=== PATIENT | female | born 2000 | race Caucasian/White ===

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

== ENCOUNTER 2018-01-11 21:37 | Outpatient (CLI) | payer SELFPAY, OTHER | END 2018-01-12 00:32 | disposition home or self-care (01) | LOC: OBT 21:37 → L-D 21:38 | DX: O62.9 Abnormality of forces of labor, unspecified (principal); Z3A.39 39 weeks gestation of pregnancy | CPT/HCPCS: G0463 ==

== ENCOUNTER 2018-01-18 16:10 | Inpatient (IN) | payer OTHER ==
[2018-01-18] MEDS ORDERED: METHYLERGONOVINE 0.2 MG INJ IM ×2 (17:00→21:30)
[2018-01-18] MEDS ORDERED: CARBOPROST 250 MCG INJ IM ×2 (17:00→21:30)
[2018-01-18] MEDS ORDERED: LIDOCAINE 1% (MPF) 30 ML INJ INJ (17:00)
[2018-01-18] MEDS ORDERED: BUTORPHANOL 2 MG INJ IV (17:00)
[2018-01-18] MEDS ORDERED: IBUPROFEN 600 MG TAB PO (17:00)
[2018-01-18] MEDS ORDERED: OXYTOCIN 30 UNITS/LR 500 ML IV ×2 (17:00→21:30)
[2018-01-18] MEDS ORDERED: MISOPROSTOL 200 MCG TAB PR ×2 (17:00→21:30)
[2018-01-18] MEDS ORDERED: HYDROCODONE/APAP (5/325) TAB PO (17:00)
[2018-01-18] MEDS: LACTATED RINGER'S 1,000 ML IV (17:08)
[2018-01-18] MEDS: AMPICILLIN 2 GM/NS (PMX) 100 ML IV (17:09)
[2018-01-18 17:23] LABS: ADD MAN DIFF? NO
[2018-01-18 17:32] LABS: BASOPHILS % 0.4 % (0.0-2.0); EOSINOPHILS # 0.2 10^3/ul (0.0-0.5); EOSINOPHILS % 1.7 % (0.0-7.0); HEMATOCRIT 38.6 % (37.0-47.0); HEMOGLOBIN 12.6 g/dl (12.0-16.0); LYMPHOCYTES # 2.1 10^3/ul (0.8-2.9); LYMPHOCYTES % 21.8 % (18.0-55.0); MEAN CORPUSCULAR HEMOGLOBIN 28.5 pg (29.0-33.0); MEAN CORPUSCULAR HGB CONC 32.6 g/dl (32.0-37.0); MEAN CORPUSCULAR VOLUME 87.3 fl (72.0-104.0); MEAN PLATELET VOLUME 10.7 fl (7.4-10.4); MONOCYTE # 0.7 10^3/ul (0.3-0.9); MONOCYTES % 7.8 % (0.0-13.0); NEUTROPHIL # 6.5 10^3/ul (1.6-7.5); NEUTROPHILS % 67.8 % (30.0-74.0); PLATELET COUNT 216 10^3/UL (140-415); RED BLOOD COUNT 4.42 10^6/ul (4.20-5.40)
[2018-01-18 17:32] LABS: WHITE BLOOD COUNT 9.5 10^3/ul (4.8-10.8)
[2018-01-18] MEDS: OXYTOCIN 30 UNITS/LR 500 ML IV ×3 (17:44→21:15)
[2018-01-18 17:47] LABS: INR 0.86; PROTIME 11.8 Sec (11.9-14.9); PT RATIO 0.9
[2018-01-18 17:48] LABS: PARTIAL THROMBOPLASTIN TIME 26.6 Sec (25.0-35.0)
[2018-01-18 18:16] LABS: HEPATITIS B SURFACE ANTIGEN NEGATIVE (NEGATIVE)
[2018-01-18] MEDS ORDERED: AMPICILLIN 1 GM/NS (PMX) 50 ML IV (21:00)
[2018-01-18] MEDS ORDERED: LACTATED RINGER'S 1,000 ML IV* (21:15)
[2018-01-18 21:29] LABS: RAPID PLASMA REAGIN NONREACTIVE (NR)
[2018-01-18] MEDS ORDERED: OXYCODONE/ASPIRIN (4.88/325) TAB PO (21:30)
[2018-01-18] MEDS: WITCH HAZEL/GLYCERIN PAD PR (23:28)
[2018-01-18] MEDS: BENZOCAINE 20% 56 ML SPRAY TOP (23:28)
[2018-01-18] MEDS: LANOLIN 7 GM TUBE TOP (23:29)
[2018-01-19] MEDS: IBUPROFEN 600 MG TAB PO ×5 (00:16→23:44)
[2018-01-19 08:59] LABS: ADD MAN DIFF? NO
[2018-01-19 09:06] LABS: WHITE BLOOD COUNT 7.8 10^3/ul (4.8-10.8)
[2018-01-19 09:06] LABS: BASOPHILS % 0.4 % (0.0-2.0); EOSINOPHILS # 0.2 10^3/ul (0.0-0.5); EOSINOPHILS % 2.7 % (0.0-7.0); HEMATOCRIT 34.9 % (37.0-47.0); HEMOGLOBIN 11.3 g/dl (12.0-16.0); LYMPHOCYTES # 2.6 10^3/ul (0.8-2.9); LYMPHOCYTES % 32.8 % (18.0-55.0); MEAN CORPUSCULAR HEMOGLOBIN 28.5 pg (29.0-33.0); MEAN CORPUSCULAR HGB CONC 32.4 g/dl (32.0-37.0); MEAN CORPUSCULAR VOLUME 87.9 fl (72.0-104.0); MONOCYTE # 0.7 10^3/ul (0.3-0.9); MONOCYTES % 8.7 % (0.0-13.0); NEUTROPHIL # 4.3 10^3/ul (1.6-7.5); NEUTROPHILS % 54.9 % (30.0-74.0); PLATELET COUNT 219 10^3/UL (140-415); RED BLOOD COUNT 3.97 10^6/ul (4.20-5.40); RED CELL DISTRIBUTION WIDTH 14.1 % (11.5-14.5)
[2018-01-19] MEDS: INFLUENZA VIRUS VACCINE 0.5 ML (DISPENSING) IM* (11:39)
[2018-01-20] MEDS: IBUPROFEN 600 MG TAB PO ×3 (05:28→17:52)
[2018-01-20] MEDS: DIPHTH/TET/ACEL PERTUSS (ADULT) 0.5 ML VIAL IM* (12:07)
[2018-01-21] MEDS ORDERED: INFLUENZA VIRUS VACCINE 0.5 ML (DISPENSING) IM* (09:00)
== END 2018-01-20 17:35 | disposition home or self-care (01) | DRG 775 ==
LOC: OBT 16:10 → L-D 16:11 → OBT 16:41 → L-D 16:41 → PP1 20:06
PROVIDERS: Obstetrics & Gynecology
PROC: 10E0XZZ Delivery of Products of Conception, External Approach (ICD-10-PCS; principal; 2018-01-18)
PROC: 4A1HXCZ Monitoring of Products of Conception, Cardiac Rate, External Approach (ICD-10-PCS; 2018-01-18)
PROC: 3E0234Z Introduction of Serum, Toxoid and Vaccine into Muscle, Percutaneous Approach (ICD-10-PCS; 2018-01-20)
DX: O48.0 Post-term pregnancy (principal); Z37.0 Single live birth; Z3A.40 40 weeks gestation of pregnancy; Z23 Encounter for immunization
CPT/HCPCS: 85025; 85610; 85730; 86592; 86900; 86901; 87340; 90686; 90715

== ENCOUNTER 2018-05-25 19:15 | Emergency (ER) | payer OTHER ==
[2018-05-25] MEDS: ONDANSETRON (ODT) 4 MG TAB ODT (20:09)
[2018-05-25] MEDS: HYDROCODONE/APAP (5/325) TAB PO (20:10)
[2018-05-25 20:11] LABS: ADD MAN DIFF? NO
[2018-05-25 20:20] LABS: BASOPHIL # 0.1 10^3/ul (0.0-0.1); BASOPHILS % 0.6 % (0.0-2.0); EOSINOPHILS # 0.2 10^3/ul (0.0-0.5); EOSINOPHILS % 2.5 % (0.0-7.0); HEMATOCRIT 39.3 % (37.0-47.0); HEMOGLOBIN 12.3 g/dl (12.0-16.0); LYMPHOCYTES # 2.3 10^3/ul (0.8-2.9); LYMPHOCYTES % 26.6 % (18.0-55.0); MEAN CORPUSCULAR HEMOGLOBIN 27.3 pg (29.0-33.0); MEAN CORPUSCULAR HGB CONC 31.3 g/dl (32.0-37.0); MEAN CORPUSCULAR VOLUME 87.1 fl (72.0-104.0); MEAN PLATELET VOLUME 10.3 fl (7.4-10.4); MONOCYTE # 0.6 10^3/ul (0.3-0.9); MONOCYTES % 7.4 % (0.0-13.0); NEUTROPHIL # 5.5 10^3/ul (1.6-7.5); NEUTROPHILS % 62.8 % (30.0-74.0); PLATELET COUNT 301 10^3/UL (140-415); RED BLOOD COUNT 4.51 10^6/ul (4.20-5.40); RED CELL DISTRIBUTION WIDTH 13.2 % (11.5-14.5)
[2018-05-25 20:20] LABS: WHITE BLOOD COUNT 8.7 10^3/ul (4.8-10.8)
[2018-05-25 20:23] LABS: ADD UMIC YES; UR ASCORBIC ACID 20 mg/dL (NEGATIVE); UR BACTERIA FEW /HPF (NONE SEEN); UR BILIRUBIN (Dip) NEGATIVE (NEGATIVE); UR BLOOD (Dip) NEGATIVE (NEGATIVE); UR CLARITY CLOUDY (CLEAR); UR COLOR AMBER (YELLOW); UR GLUCOSE (Dip) NEGATIVE (NEGATIVE); UR KETONES (Dip) TRACE mg/dL (NEGATIVE); UR LEUKOCYTE ESTERASE (Dip) 3+ Leu/ul (NEGATIVE); UR MUCUS FEW /HPF (NONE SEEN); UR NITRITE (Dip) NEGATIVE (NEGATIVE); UR RBC 17 /HPF (0-5); UR SPECIFIC GRAVITY (Dip) 1.029 (1.003-1.030); UR SQUAMOUS EPITHELIAL CELL MANY /HPF (FEW); UR TOTAL PROTEIN (Dip) 1+ mg/dl (NEGATIVE); UR UROBILINOGEN (Dip) 1+ mg/dL (NEGATIVE); UR WBC > 182 /HPF (0-5)
[2018-05-25 20:38] LABS: ALANINE AMINOTRANSFERASE 35 IU/L (13-69); ALBUMIN/GLOBULIN RATIO 1.11; ALKALINE PHOSPHATASE 103 IU/L (42-121); ANION GAP 13 (8-16); ASPARTATE AMINO TRANSFERASE 25 IU/L (15-46); BILIRUBIN,INDIRECT 0.3 mg/dl (0-1.1); BILIRUBIN,TOTAL 0.3 mg/dl (0.2-1.3); BLOOD UREA NITROGEN 10 mg/dl (7-20); CALCIUM 9.1 mg/dl (8.4-10.2); CARBON DIOXIDE 25 mmol/L (21-31); CHLORIDE 106 mmol/L (97-110); CREATININE 0.48 mg/dl (0.44-1.00); GLUCOSE 99 mg/dl (70-220); LIPASE 40 U/L (23-300); POTASSIUM 3.7 mmol/L (3.5-5.1); SODIUM 140 mmol/L (135-144); TOTAL PROTEIN 7.6 g/dl (6.1-8.1)
== END 2018-05-26 07:13 | disposition left against medical advice (07) ==
LOC: E/R 05-26 07:13 → FTE 19:15
DX: K80.20 Calculus of gallbladder without cholecystitis without obstruction (principal); Z33.1 Pregnant state, incidental
CPT/HCPCS: 36415; 76705; 80053; 81001; 83690; 84702; 85025; 99284-25